=== PATIENT | female | born 1930 | race Caucasian/White ===

== ENCOUNTER → 2017-07-17 | Outpatient (CLI) | payer MEDICARE ==
[~2017-07-17] MED LIST: ADULT LOW DOSE81 MG PO; HYZAAR 100-251 EACH PO; LESCOL XL80 MG PO; PRILOSEC 20 MG20 MG PO; TRAMADOL 50 MG50 MG PO; TYLENOL EXTRA500 MG PO
== END ==
LOC: M.ULTRA 13:53
DX: M79.605 Pain in left leg (principal); M79.604 Pain in right leg; R60.0 Localized edema

== ENCOUNTER → 2018-02-15 | Outpatient (CLI) | payer MEDICARE | END | disposition home or self-care (01) | LOC: M.RAD 09:55 | DX: M16.11 Unilateral primary osteoarthritis, right hip (principal); M25.551 Pain in right hip; Z88.8 Allergy status to other drugs, medicaments and biological substances; Z79.82 Long term (current) use of aspirin; Z79.899 Other long term (current) drug therapy ==

== ENCOUNTER 2018-03-03 13:05 | Emergency (ER) | payer MEDICARE ==
[~2018-03-03] VITALS: Ht 167.6 cm; Wt 78.5 kg
[~2018-03-03 13:05] MED LIST changes: -TRAMADOL 50 MG50 MG PO; -TYLENOL EXTRA500 MG PO
[2018-03-03] MEDS ORDERED: TYLENOL EXTRA500 MG PO (13:15)
[2018-03-03 13:30] LABS: ABSOLUTE LYMPHOCYTES 0.5 thou/uL (0.8-5.3); ABSOLUTE MONOCYTES 0.3 thou/uL (0.0-1.2); ABSOLUTE NEUTROPHILS 3.9 thou/uL (1.6-8.1); BASOPHILS 0.5 %; EOSINOPHILS 0.5 %; HEMATOCRIT 38.7 % (37.0-47.0); HEMOGLOBIN 13.1 gm/dL (12.0-15.0); LYMPHOCYTES 11.2 %; MCH 29.6 pg (26.0-34.0); MCHC 33.9 g/dL (28.0-37.0); MCV 87.2 fL (80.0-100.0); MONOCYTES 5.9 %; MPV 7.7 fl. (7.2-11.1); NUCLEATED RBCS 0 /100WBC; PLATELET COUNT* 157 thou/uL (150-400); POLYS 81.9 %; RBC 4.43 mil/uL (4.20-5.00); RDW-CV 14.7 % (10.5-14.5); WBC 4.7 thou/uL (4.0-11.0)
[2018-03-03 13:39] LABS: ANION GAP 7 mmol/L (7-16); APTT 24.9 Seconds (25.0-31.3); BUN 21 mg/dL (7-18); CALCIUM 9.7 mg/dL (8.5-10.1); CHLORIDE 104 mmol/L (98-107); CO2 27 mmol/L (21-32); GLUCOSE 149 mg/dL (70-99); PROTIME 10.5 Seconds (9.20-11.50); SODIUM 138 mmol/L (136-145)
[2018-03-03 13:50] LABS: ALKALINE PHOSPHATASE 60 U/L (46-116); NT-PRO BRAIN NAT PEPTIDE 176 pg/mL (<300); SGOT 13 U/L (15-37); SGPT 22 U/L (30-65); TOTAL BILIRUBIN 0.6 mg/dL (<0.1-1.0); TOTAL PROTEIN 5.8 g/dL (6.4-8.2); TROPONIN-I LEVEL <0.06 ng/mL (<0.06)
[2018-03-03 14:27] LABS: URINE BILIRUBIN NEGATIVE (Negative); URINE BLOOD NEGATIVE (Negative); URINE CLARITY CLEAR; URINE COLOR YELLOW; URINE GLUCOSE-RANDOM NEGATIVE (Negative); URINE KETONES NEGATIVE (Negative); URINE LEUKOCYTES-REFLEX NEGATIVE (Negative); URINE NITRITE-REFLEX NEGATIVE (Negative); URINE PROTEIN NEGATIVE (Negative); URINE SPECIFIC GRAVITY 1.015 (1.005-1.030); URINE UROBILINOGEN 0.2 E.U./dl (0.2-1.0)
[2018-03-03 15:20] VITALS: BP 137/62
--- NOTE | 2018-03-03 17:03 | EKG ---
[place] [address] ELECTROCARDIOGRAM REPORT Name: DURGA RIOS Room: [facility]#: [id number] Admission: 03/03/18 Attend Phys: Discharge: 03/03/18 Date of : 30 Report #: [id number] THIS REPORT FOR: //name// [facility] ED Test Date: 2018-03-03 Test Time: 13:16:03 Pat Name: DURGA RIOS Department: Room: Gender: F Controller Repairer And Tester: TSJenaro : 1930 Requested By: Deo Gruber Order Number: [id number] MD: Wilson Horner Measurements Intervals [place] Rate: 64 P: 31 MS: 193 QRS: -33 QRSD: 105 T: 45 QT: 375 QTc: 387 Interpretive Statements Sinus rhythm Left axis deviation Compared to ECG 11/17/2007 08:57:32 Left-axis deviation now present Sinus bradycardia no longer present Electronically Signed On 03-03-2018 17:03:47 CDT by Wilson Horner [email or web address] <ELECTRONICALLY SIGNED> By: Wilson Horner MD, [facility] 03/03/18 1703 1316 Wilson Horner MD, FACC /EPI
== END 2018-03-03 15:21 | disposition home or self-care (01) ==
LOC: M.ERS 13:05
PROVIDERS: Family Medicine
DX: F41.9 Anxiety disorder, unspecified (principal); I10 Essential (primary) hypertension; K21.9 Gastro-esophageal reflux disease without esophagitis; E78.5 Hyperlipidemia, unspecified; Z90.49 Acquired absence of other specified parts of digestive tract; Z88.6 Allergy status to analgesic agent

== ENCOUNTER 2018-03-20 10:15 | Emergency (ER) | payer MEDICARE ==
[~2018-03-20] VITALS: Ht 167.6 cm; Wt 84.8 kg
[~2018-03-20 10:15] MED LIST changes: +TYLENOL EXTRA500 MG PO
[2018-03-20 10:55] LABS: ABSOLUTE LYMPHOCYTES 0.7 thou/uL (0.8-5.3); ABSOLUTE MONOCYTES 0.3 thou/uL (0.0-1.2); ABSOLUTE NEUTROPHILS 2.6 thou/uL (1.6-8.1); BASOPHILS 0.6 %; EOSINOPHILS 0.9 %; HEMOGLOBIN 12.3 gm/dL (12.0-15.0); LYMPHOCYTES 18.8 %; MCH 29.2 pg (26.0-34.0); MCHC 33.3 g/dL (28.0-37.0); MCV 87.7 fL (80.0-100.0); MONOCYTES 6.9 %; MPV 7.5 fl. (7.2-11.1); NUCLEATED RBCS 0 /100WBC; PLATELET COUNT* 206 thou/uL (150-400); POLYS 72.8 %; RBC 4.22 mil/uL (4.20-5.00); RDW-CV 14.2 % (10.5-14.5); WBC 3.6 thou/uL (4.0-11.0)
[2018-03-20 11:03] LABS: CALCIUM 9.8 mg/dL (8.5-10.1); POTASSIUM 3.2 mmol/L (3.5-5.1)
[2018-03-20 11:08] LABS: ALBUMIN 3.1 g/dL (3.4-5.0); TOTAL BILIRUBIN 0.7 mg/dL (<0.1-1.0); TOTAL PROTEIN 5.8 g/dL (6.4-8.2)
[2018-03-20 11:38] LABS: URINE BLOOD NEGATIVE (Negative); URINE CLARITY CLEAR; URINE COLOR YELLOW; URINE GLUCOSE-RANDOM NEGATIVE (Negative); URINE KETONES NEGATIVE (Negative); URINE LEUKOCYTES-REFLEX NEGATIVE (Negative); URINE NITRITE-REFLEX NEGATIVE (Negative); URINE PROTEIN NEGATIVE (Negative)
[2018-03-20 11:44] LABS: ICTOTEST (BILI CONFIRMATORY) Negative (Negative); URINE BILIRUBIN 1+ (Negative)
[2018-03-20] MEDS ORDERED: TRAMADOL 50 MG50 MG PO (12:21)
[2018-03-20 12:30] VITALS: BP 139/57
== END 2018-03-20 12:31 | disposition home or self-care (01) ==
LOC: M.ERS 10:15
PROVIDERS: Nurse Practitioner Family
DX: M25.551 Pain in right hip (principal); E87.6 Hypokalemia; K21.9 Gastro-esophageal reflux disease without esophagitis; E78.5 Hyperlipidemia, unspecified; I10 Essential (primary) hypertension; Z90.49 Acquired absence of other specified parts of digestive tract; Z88.8 Allergy status to other drugs, medicaments and biological substances

== ENCOUNTER → 2018-03-29 | Outpatient (CLI) | payer MEDICARE ==
[~2018-03-29] MED LIST changes: +TRAMADOL 50 MG50 MG PO
== END ==
LOC: M.CT 12:19
DX: K44.9 Diaphragmatic hernia without obstruction or gangrene (principal); I99.8 Other disorder of circulatory system; R10.9 Unspecified abdominal pain; Z90.49 Acquired absence of other specified parts of digestive tract

== ENCOUNTER 2018-04-04 19:17 | Emergency (ER) | payer MEDICARE ==
[~2018-04-04] VITALS: Ht 167.6 cm; Wt 77.1 kg
[2018-04-04 19:49] LABS: ABSOLUTE EOSINOPHILS 0.1 thou/uL (0.0-0.7); ABSOLUTE LYMPHOCYTES 0.8 thou/uL (0.8-5.3); ABSOLUTE MONOCYTES 0.3 thou/uL (0.0-1.2); ABSOLUTE NEUTROPHILS 2.8 thou/uL (1.6-8.1); BASOPHILS 0.7 %; EOSINOPHILS 1.3 %; HEMATOCRIT 36.2 % (37.0-47.0); HEMOGLOBIN 12.2 gm/dL (12.0-15.0); LYMPHOCYTES 19.5 %; MCH 29.4 pg (26.0-34.0); MCHC 33.8 g/dL (28.0-37.0); MCV 86.9 fL (80.0-100.0); MONOCYTES 7.6 %; MPV 7.2 fl. (7.2-11.1); NUCLEATED RBCS 0 /100WBC; PLATELET COUNT* 210 thou/uL (150-400); POLYS 70.9 %; RBC 4.16 mil/uL (4.20-5.00); RDW-CV 14.3 % (10.5-14.5); WBC 3.9 thou/uL (4.0-11.0)
[2018-04-04 20:02] LABS: CALCIUM 9.8 mg/dL (8.5-10.1); CREATININE 0.9 mg/dL (0.6-1.3); POTASSIUM 3.7 mmol/L (3.5-5.1)
[2018-04-04 20:07] LABS: ALBUMIN 2.8 g/dL (3.4-5.0); TOTAL BILIRUBIN 0.5 mg/dL (<0.1-1.0); TOTAL PROTEIN 5.7 g/dL (6.4-8.2)
[2018-04-04 20:47] LABS: URINE BILIRUBIN NEGATIVE (Negative); URINE BLOOD NEGATIVE (Negative); URINE CLARITY CLEAR; URINE COLOR YELLOW; URINE GLUCOSE-RANDOM NEGATIVE (Negative); URINE KETONES NEGATIVE (Negative); URINE LEUKOCYTES-REFLEX NEGATIVE (Negative); URINE NITRITE-REFLEX NEGATIVE (Negative); URINE PROTEIN NEGATIVE (Negative); URINE UROBILINOGEN 0.2 E.U./dl (0.2-1.0)
[2018-04-04 21:59] VITALS: BP 176/71
--- NOTE | 2018-04-05 16:36 | EKG ---
[place] [address] ELECTROCARDIOGRAM REPORT Name: BLANCADURGA Mirza Room: [facility]#: [id number] Admission: 04/04/18 Attend Phys: Discharge: 04/04/18 Date of : 30 Report #: [id number] THIS REPORT FOR: //name// [facility] ED Test Date: 2018-04-04 Test Time: 19:49:16 Pat Name: DURGA RIOS Department: Room: Gender: F Blind Hooker: KEVON : 1930 Requested By: Megan Herrera Order Number: [id number] MD: Lucho Mak Measurements Intervals [place] Rate: 61 P: 53 WV: 200 QRS: -31 QRSD: 102 T: 30 QT: 372 QTc: 375 Interpretive Statements Sinus rhythm Left axis deviation Minimal ST elevation, lateral leads Compared to ECG 03/03/2018 13:16:03 ST (T wave) deviation now present Electronically Signed On 04-05-2018 16:36:29 GAME DESIGN INSTRUCTOR by Lucho Mak [email or web address] <ELECTRONICALLY SIGNED> By: Lucho Mak MD, [facility] 04/05/18 1636 48 48 Lucho Mak MD, FACC /EPI
== END 2018-04-04 22:00 | disposition home or self-care (01) ==
LOC: M.ERS 19:17
PROVIDERS: Emergency Medicine
DX: M25.551 Pain in right hip (principal); M54.17 Radiculopathy, lumbosacral region; R51 Headache; I10 Essential (primary) hypertension; E78.5 Hyperlipidemia, unspecified; Z90.49 Acquired absence of other specified parts of digestive tract; Z88.8 Allergy status to other drugs, medicaments and biological substances; W01.10XA Fall on same level from slipping, tripping and stumbling with subsequent striking against unspecified object, initial encounter; Y93.89 Activity, other specified; Y92.89 Other specified places as the place of occurrence of the external cause; Y99.8 Other external cause status

== ENCOUNTER 2018-04-27 16:48 | Inpatient (IN) | payer MEDICARE ==
[~2018-04-27] VITALS: Ht 167.6 cm; Wt 70.3 kg
--- NOTE | ~2018-04-27 | PLAN ---
[address] [address] REHAB UNIT PLAN OF CARE Name: BLANCADURGA Hermes Room: [facility] [place] .R.#: [id number] Admission: 04/27/18 Attend Phys: Josephine Gauthier DO Discharge: Date of : 30 Report #: [id number] THIS REPORT FOR: //name// CC: Josephine Amin Overall Plan of Care This is an 87-year-old female admitted to inpatient rehabilitation to facilitate safe discharge home, status post admission for thoracolumbar spondylosis, right lower extremity radiculopathy with sciatica. Previous level of function is znfggpl-hz-vchldubm assistance depending on therapy, activity, and time of day. Current level of function is yamruqf-rj-albwstti assistance of 1-2 depending on therapy, activity and time of day. She does have wbdo-sw-jcwhzwdh impairment of comprehension, memory, expression and social interaction, however, estimated length of stay is 10-12 days with return to home with supportive family in an accessible house. MEDICAL PROGNOSIS: Good. REHABILITATION PROGNOSIS: Good. Physical therapy will see the patient 60-90 minutes per day, 5 days per week, working on upper and lower body strength, balance, coordination, navigation. Occupational therapy will work with the patient 60-90 minutes per day, 5 days per week, working on upper and lower body strength, balance, coordination, navigation, bathing, dressing, and toileting. Speech and language pathology will work with the patient 30-60 minutes per day, 5 days per week, working on expression, social interaction, memory and problem solving. This is an overall plan of care, may change from time to time. We will team weekly and make changes to the plan of care as needed. By: 1602 [id number] Gauthier DO /nt
--- NOTE | ~2018-04-27 | D ---
[facility] [address] [place] [address] DISCHARGE SUMMARY Name: BLANCADURGA Hermes Room: [address] ADM IN M.R.#: [id number] Admission: 04/27/18 Attend Phys: Josephine Gauthier DO Discharge: Date of : 30 Report #: [id number] THIS REPORT FOR: //name// CC: Josephine Amin DISCHARGE DIAGNOSES: Thoracolumbar spondylosis with right lower extremity radiculopathy and sciatica. DISCHARGE DISPOSITION: To assisted living with 24/7 supervision. Discharged for rehabilitation, full code. Rehab potential is good. She will need physical and occupational therapy. She will maintain a regular diet. Titrate oxygen to 90% if needed. Occasionally check potassium as she is on replacement due to Lasix. Follow with primary care physician within 1-2 weeks. MEDICATIONS: Reviewed, reconciled by myself and are available in the MAR. The patient did reach goals, did not have ability for 24/7 supervision from family and she also needs continued rehabilitation. DISCHARGE PHYSICAL EXAMINATION: GENERAL: Alert, oriented, in no apparent distress. VITAL SIGNS: Reviewed and are stable. HEENT: Head atraumatic, normocephalic. Pupils equal, round, reactive. ABDOMEN: Soft, nontender, nondistended. NEUROLOGIC: Cranial nerves 2-12 are grossly intact. No focal neuro deficits. SKIN: Warm and dry. No rashes or lesions noted. By: 1642 1722Josephine Gauthier DO /diana
[2018-04-27] MEDS ORDERED: TYLENOL325 MG PO (17:01)
[2018-04-27] MEDS ORDERED: CLONAZEPAM 0.50.5 M1 PO (17:03)
[2018-04-27] MEDS ORDERED: VOLTAREN GEL 1100 G2 TOP (17:07)
[2018-04-27] MEDS ORDERED: LASIX 20 MG TAB20 MG PO (17:09)
[2018-04-27] MEDS ORDERED: OXYCODONE HCL 55 MG PO (17:11)
[2018-04-27] MEDS ORDERED: KLOR-CON 1010 MEQ PO (17:13)
[2018-04-27] MEDS ORDERED: MIRALAX17 GM PO (17:18)
[2018-04-27] MEDS ORDERED: NORVASC5 MG PO (17:18)
[2018-04-27 18:24] VITALS: BP 103/75
[2018-04-27 19:27] VITALS: BP 140/60
[2018-04-28 03:58] LABS: HEMATOCRIT 36.5 % (37.0-47.0); HEMOGLOBIN 12.2 gm/dL (12.0-15.0); MCH 29.3 pg (26.0-34.0); MCHC 33.5 g/dL (28.0-37.0); MCV 87.4 fL (80.0-100.0); RBC 4.18 mil/uL (4.20-5.00); RDW-CV 14.5 % (10.5-14.5); WBC 3.1 thou/uL (4.0-11.0)
[2018-04-28 04:05] LABS: CALCIUM 9.6 mg/dL (8.5-10.1); CREATININE 1.1 mg/dL (0.6-1.3); POTASSIUM 3.8 mmol/L (3.5-5.1)
[2018-04-28 07:30] VITALS: BP 144/68
[2018-04-28 19:53] VITALS: BP 127/67
[2018-04-29 08:04] VITALS: BP 136/68
[2018-04-29 19:52] VITALS: BP 112/55
[2018-04-30 08:17] VITALS: BP 133/63
[2018-04-30 19:00] VITALS: BP 115/61
[2018-05-01 07:00] VITALS: BP 136/54
[2018-05-01 20:00] VITALS: BP 97/46
[2018-05-02 01:36] LABS: HEMATOCRIT 32.7 % (37.0-47.0); HEMOGLOBIN 11.2 gm/dL (12.0-15.0); MCH 29.5 pg (26.0-34.0); MCHC 34.2 g/dL (28.0-37.0); MCV 86.2 fL (80.0-100.0); MPV 7.6 fl. (7.2-11.1); RBC 3.8 mil/uL (4.20-5.00); RDW-CV 14.2 % (10.5-14.5); WBC 3.9 thou/uL (4.0-11.0)
[2018-05-02 01:40] LABS: CALCIUM 9.3 mg/dL (8.5-10.1); CREATININE 1.4 mg/dL (0.6-1.3); MAGNESIUM 1.6 mg/dL (1.8-2.4); POTASSIUM 3.2 mmol/L (3.5-5.1)
[2018-05-02 09:15] VITALS: BP 142/67
[2018-05-02 20:00] VITALS: BP 139/65
[2018-05-03 08:00] VITALS: BP 152/69
[2018-05-03 09:09] VITALS: BP 152/69
[2018-05-03 20:10] VITALS: BP 168/73
[2018-05-04 05:10] LABS: ABSOLUTE EOSINOPHILS 0.1 thou/uL (0.0-0.7); ABSOLUTE LYMPHOCYTES 0.7 thou/uL (0.8-5.3); ABSOLUTE MONOCYTES 0.3 thou/uL (0.0-1.2); ABSOLUTE NEUTROPHILS 1.9 thou/uL (1.6-8.1); CALCIUM 9.8 mg/dL (8.5-10.1); CREATININE 1.1 mg/dL (0.6-1.3); EOSINOPHILS 1.7 %; HEMATOCRIT 33.4 % (37.0-47.0); HEMOGLOBIN 11.6 gm/dL (12.0-15.0); LYMPHOCYTES 23.2 %; MAGNESIUM 1.8 mg/dL (1.8-2.4); MCHC 34.7 g/dL (28.0-37.0); MCV 86.7 fL (80.0-100.0); MONOCYTES 11.1 %; MPV 7.7 fl. (7.2-11.1); NUCLEATED RBCS 0 /100WBC; PLATELET COUNT* 235 thou/uL (150-400); POTASSIUM 3.7 mmol/L (3.5-5.1); RBC 3.85 mil/uL (4.20-5.00)
[2018-05-04 06:06] LABS: % SATURATION 18 % (20-39); IRON 46 ug/dL (50-175)
[2018-05-04 07:38] VITALS: BP 145/61
[2018-05-04 20:00] VITALS: BP 125/58
[2018-05-05 08:00] VITALS: BP 132/66
[2018-05-05 19:42] VITALS: BP 142/65
[2018-05-06 07:30] VITALS: BP 142/64
[2018-05-06 19:58] VITALS: BP 119/55
[2018-05-07 07:30] VITALS: BP 157/67
[2018-05-07 20:14] VITALS: BP 126/58
[2018-05-08 09:00] VITALS: BP 130/58
[2018-05-08 19:55] VITALS: BP 119/51
[2018-05-09 07:47] VITALS: BP 133/57
[2018-05-09 09:30] VITALS: BP 127/72
[2018-05-09 19:30] VITALS: BP 126/56
[2018-05-10 08:38] VITALS: BP 117/72
[2018-05-10 20:25] VITALS: BP 126/64
[2018-05-11 08:40] VITALS: BP 138/60
[2018-05-11 20:00] VITALS: BP 140/62
[2018-05-12 08:50] VITALS: BP 145/63
[2018-05-12 20:25] VITALS: BP 140/67
[2018-05-13 08:00] VITALS: BP 140/65
[2018-05-13 20:40] VITALS: BP 130/71
[2018-05-14 07:33] VITALS: BP 137/63
[2018-05-14] MEDS ORDERED: ADULT LOW DOSE81 MG PO (10:25)
[2018-05-14] MEDS ORDERED: IRON325 PO (10:26)
[2018-05-14] MEDS ORDERED: LIDOCAINE PAIN1 EACH TOP (10:27)
[2018-05-14] MEDS ORDERED: GABAPENTIN 100100 MG PO (10:28)
[2018-05-14] MEDS ORDERED: NEURONTIN 300300 M1 PO (10:29)
[2018-05-14] MEDS ORDERED: PROTONIX40 M1 PO (10:30)
[2018-05-14] MEDS ORDERED: VITAMINC500 PO (10:30)
[2018-05-14] MEDS ORDERED: SENOKOT-S1 TA2 PO (10:31)
[2018-05-14] MEDS ORDERED: ZOFRAN ODT4 MG SUBLING (10:33)
[2018-05-14 10:35] VITALS: BP 137/63
== END 2018-05-14 14:00 | DRG 948 ==
LOC: M.REH 16:48
PROVIDERS: Family Medicine; ADMIT Physical Medicine & Rehabilitation
DX: R53.1 Weakness (principal); M16.11 Unilateral primary osteoarthritis, right hip; M17.11 Unilateral primary osteoarthritis, right knee; I10 Essential (primary) hypertension; F41.9 Anxiety disorder, unspecified; K59.09 Other constipation; K21.9 Gastro-esophageal reflux disease without esophagitis; M47.25 Other spondylosis with radiculopathy, thoracolumbar region; E78.5 Hyperlipidemia, unspecified; K57.90 Diverticulosis of intestine, part unspecified, without perforation or abscess without bleeding; E83.42 Hypomagnesemia; R11.0 Nausea; D50.9 Iron deficiency anemia, unspecified; Z91.81 History of falling; Z92.3 Personal history of irradiation; Z88.8 Allergy status to other drugs, medicaments and biological substances; Z79.899 Other long term (current) drug therapy